=== PATIENT | male | born 1960 | race Caucasian/White ===

== ENCOUNTER 2018-12-07 11:21 | Emergency (ER) | payer OTHER ==
[~2018-12-07] VITALS: Ht 180.3 cm; Wt 104.5 kg
[2018-12-07 11:21] VITALS: BP 138/78
[~2018-12-07 11:21] MED LIST: KEFL500C17 PO; NAPR-837 PO
[2018-12-07] MEDS ORDERED: MUCI1TAB16 PO (12:20)
== END 2018-12-07 12:29 | disposition home or self-care (01) ==
LOC: M ED 11:21
DX: J06.9 Acute upper respiratory infection, unspecified (principal); F17.210 Nicotine dependence, cigarettes, uncomplicated